=== PATIENT | male | born 1995 | race Caucasian/White ===

== ENCOUNTER 2024-04-05 14:24 | Emergency (ER) | payer OTHER ==
[~2024-04-05] VITALS: Ht 175.3 cm; Wt 85.5 kg
[2024-04-05] MEDS ORDERED: AMOX500C PO (16:25)
[2024-04-05] MEDS ORDERED: MAGICMW SSP (16:25)
[2024-04-05] MEDS: AMOXICILLIN 500 MG CAP PO ONE (16:31)
[2024-04-05 17:29] VITALS: BP 112/62; TEMP 98.4; O2SAT 99
[2024-04-05] MEDS: MAGIC MOUTHWASH 5ML ORAL SYRINGE SS ONE (17:29)
== END 2024-04-05 17:31 | disposition home or self-care (01) ==
LOC: EDSEX 14:24 → M ED 14:24
DX: J02.0 Streptococcal pharyngitis (principal)